=== PATIENT | male | born 1955 | race Caucasian/White ===

== ENCOUNTER 2017-09-14 10:45 | Emergency (ER) | payer OTHER ==
[~2017-09-14] VITALS: Ht 172.7 cm; Wt 79.4 kg
[~2017-09-14 10:45] MED LIST: ALPRAZOLAM2 MG; ALPRAZOLAM2 MG PO; AUGMENTIN 875875 MG PO; BUPROPION HCL150 M2; BUPROPION HCL150 M2 PO; BUPROPION HCL150 MG PO; CYCLOBENZAPRINE10 M1 PO; CYCLOBENZAPRINE10 MG; CYCLOBENZAPRINE10 MG PO; DIFLUCAN 100MG100 MG PO; FLEXERIL10 MG PO; HYDRODIURIL 112.5 M1 PO; LATUDA40 MG; LATUDA40 MG PO; LIDODERM 5% PAT1 PAT TOP; METHADONE10 MG/5 M2 PO; NAPROSYN500 M1 PO; PERCOCET 325 MG1 TA2 PO; PERCOCET 5-3251 EACH PO; PROAIR HFA0.09 MG/Ac IH; SEROQUEL (MONO200 MG PO; SEROQUEL XR200 MG; SEROQUEL XR200 MG PO; SOVALDI400 MG PO; SYMBICORT 160/41 PUF INH; TAMSULOSIN HCL0.4 M1 PO; VIIBRYD10 MG PO; VIIBRYD20 MG; VIIBRYD20 MG PO
[2017-09-14] MEDS ORDERED: MOBIC7.5 M1 PO (12:45)
[2017-09-14] MEDS ORDERED: TYLENOL WITH C1 EACH PO (12:45)
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
[2017-09-14 12:54] VITALS: BP 146/88
== END 2017-09-14 12:54 ==
LOC: ERH 10:45
DX: S39.012A Strain of muscle, fascia and tendon of lower back, initial encounter (principal); X58.XXXA Exposure to other specified factors, initial encounter; Y93.67 Activity, basketball; Y92.9 Unspecified place or not applicable